=== PATIENT | female | born 2005 | race Asian ===

== ENCOUNTER 2023-11-20 06:56 | Outpatient (REF) | payer OTHER, SELFPAY ==
--- NOTE | ~2023-11-20 | US_ITS ---
EXAMINATION: US PELVIS CLINICAL INFORMATION: Irregular menses. COMPARISON: None available. TECHNIQUE: Ultrasound of the pelvis is performed using both transabdominal and transvaginal transducers along with Doppler. Transvaginal imaging is performed due to inadequate visualization transabdominally. FINDINGS: Uterus: The uterus is retroverted and measures 6.5 x 3 x 3.9 cm. The double wall endometrial thickness is 2.1 mm. The uterus is smooth in contour and has normal myometrial echogenicity. No visible fibroid. Adnexa: Both ovaries are visualized. There is normal color flow to the adnexa. There is no ovarian torsion. There is no pelvic ascites or fluid collection. Right ovary measures 2.2 x 1.8 x 1.8 cm. Volume 3.7 mL Left ovary measures 2.8 x 2 x 1.9 cm. Volume 5.6 mL Cul-de-sac: Small to moderate volume of fluid. US/US pelvic and transvaginal IMPRESSION: Normal ultrasound of pelvis. Electronically signed by: Julio C Izquierdo MD 11/20/2023 04:53 PM EDT
== END 2023-11-20 06:57 | disposition home or self-care (01) ==
LOC: HO.UMASIMG 06:56
PROVIDERS: Visit Provider Nurse Practitioner Women's Health
DX: N92.6 Irregular menstruation, unspecified (principal)
CPT/HCPCS: 76830; 76856